=== PATIENT | female | born 1980 | race Caucasian/White ===

== ENCOUNTER 2020-04-18 10:07 | Emergency (ER) | payer BC, OTHER ==
[~2020-04-18] VITALS: Ht 170.2 cm; Wt 77.1 kg
[~2020-04-18 10:07] MED LIST: COLACE 100MG C100 MG PO; FISH OIL 1,0001 EAC5 PO; IBUPROFEN600 MG PO; LORTAB 5-325 M1 EACH PO
[2020-04-18 11:47] LABS: HEMOGLOBIN 13.2 gm/dl (12.3-15.3); RED BLOOD COUNT 4.34 M/UL (4.00-5.10); WHITE BLOOD COUNT 9.5 K/UL (4.5-11.0)
[2020-04-18 12:36] LABS: BUN/CREATININE RATIO 14 (0-10)
[2020-04-18] MEDS ORDERED: KETOROLAC TROME10 MG PO (14:11)
[2020-04-18] MEDS ORDERED: LEVOFLOXACIN750 MG PO (16:14)
[2020-04-18] MEDS ORDERED: FLOMAX 0.4 MG0.4 MG PO (16:14)
== END 2020-04-18 16:51 | disposition home or self-care (01) ==
LOC: ER1 10:07 → CDU 14:55 → ER1 14:55
PROVIDERS: Physician Assistant
DX: N13.6 Pyonephrosis (principal); Z90.49 Acquired absence of other specified parts of digestive tract; Z90.710 Acquired absence of both cervix and uterus; Z98.890 Other specified postprocedural states; Z88.0 Allergy status to penicillin; Z88.2 Allergy status to sulfonamides
CPT/HCPCS: 80053; 81001; 83605; 85025; 87077; 87086; 87186; 90471; 96365; 96375; 99284; J0696; J1885; J2405; J7030

== ENCOUNTER → 2020-06-12 | Outpatient (CLI) | payer BC, OTHER ==
[~2020-06-12] MED LIST changes: +FLOMAX 0.4 MG0.4 MG PO; +KETOROLAC TROME10 MG PO; +LEVOFLOXACIN750 MG PO
== END ==
LOC: KOH-I 14:30
DX: N13.30 Unspecified hydronephrosis (principal)
CPT/HCPCS: 76775